=== PATIENT | female | born 1975 | race Caucasian/White ===

== ENCOUNTER 2019-03-26 17:52 | Emergency (ER) | payer MEDICAID ==
[~2019-03-26] VITALS: Ht 152.4 cm; Wt 55.8 kg
[2019-03-26 18:00] VITALS: BP_SYST 116
[2019-03-26] MEDS ORDERED: KETOROLAC TROMETHAMINE 60 MG/2 ML VIAL IM ONE (18:15)
[2019-03-26 18:43] VITALS: BP_SYST 110
== END 2019-03-26 18:45 | disposition home or self-care (01) ==
LOC: SED 17:52
DX: M75.22 Bicipital tendinitis, left shoulder (principal)
CPT/HCPCS: 73030; 96372; 99283; J1885